=== PATIENT | female | born 1945 | race African-American/Black ===

== ENCOUNTER 2017-04-06 09:27 | Emergency (ER) | payer MEDICARE, OTHER ==
[~2017-04-06] VITALS: Ht 162.6 cm; Wt 105.0 kg
[~2017-04-06 09:27] MED LIST: AMLO5TAB2 PO; ASPI81CH CHEW; BACL10TA PO; D3400CAP PO; DICL1GEL3 TOPICAL; FLUO20CA12 PO; GABA300C5 PO; GLIP5TAB8 PO; HYDR-3516 PO; HYDR50TA3 PO; LATA0.002 EACH EYE; LOSA100T PO; METF1000 PO; METH5TAB4 PO; METO100T PO; MULT1TAB84 PO
[2017-04-06 09:34] VITALS: BP 146/75; PULSE 88; RESP 15; TEMP 97.4; O2SAT 97
--- NOTE | 2017-04-06 11:12 | PD ---
HPI Chief Complaint: GI Complaint Time Seen by Provider: 10:49 Travel History International Travel<30 days: No Contact w/Intl Traveler<30days: No Traveled to known affect area: No History of Present Illness HPI This patient complains of generalized weakness and malaise. Duration is one month. She has occasional vomiting and diarrhea. She is not having abdominal pain. She denies fever. She saw her primary physician a few weeks ago. It came up whether depression was related to these symptoms. She started on antidepressant recently but doesn't really feel any different. She denies suicidal thoughts. She denies productive cough or shortness of breath or chest pain. Symptoms severity is moderate. No alleviating factors. No Exacerbating factors. She does have history of hyperthyroidism. PFSH Past Medical History Anemia: Yes Cancer: No Cardiovascular Problems: Yes (PVD) High Cholesterol: Yes Diabetes: Yes Diminished Hearing: No Endocrine: Yes GERD: Yes Glaucoma: Yes Genitourinary: No Hepatitis: No Hiatal Hernia: No Hypertension: Yes Immune Disorder: Yes (RA) Musculoskeletal: Yes (ARTHRITIS, DDD, RA) Neurologic: Yes (HEADACHES) Psychiatric: No Reproductive: No Respiratory: Yes (SLEEP APNEA/ NO CPAP) Sleep Apnea: Yes Thyroid Disease: Yes (BORDERLINE HYPER) ?: Not Past Surgical History AICD: No Body Medical Devices: LUMBAR HARDWARE, CARDIAC STENTS Cardiac Surgery: Yes (cardiac stents x4) Gynecologic Surgery: Yes (HYSTERECTOMY) Hysterectomy: Yes (PARTIAL MANY YEARS AGO, FULL 2006) Joint Replacement: Yes (RIGHT KNEE) Pacemaker: No Other Surgery: No (WILLI, LEFT OVARIAN CYTECTOMY HEART CATH ) Social History Alcohol Use: No Tobacco Use: No Substance Use: Yes (MARIJUANA) Allergies-Medications (Allergen,Severity, Reaction): Coded Allergies: aspirin (Unverified Allergy, Severe, vaginitis or anything containing aspirin, 03/30/17) 11/24/14 DENIES ALLERGY ibuprofen (Unverified Allergy, Severe, VAGINITIS, 03/30/17) doxycycline (Unverified Allergy, Intermediate, VAGINITIS, 03/30/17) minocycline (Unverified Allergy, Intermediate, VAGINITIS, 03/30/17) tigecycline (Unverified Allergy, Intermediate, VAGINITIS, 03/30/17) tramadol (Unverified Allergy, Mild, Itching, 10/9/17) Reported Meds & Prescriptions Reported Meds & Active Scripts Active Fluoxetine (Fluoxetine HCl) 20 Mg Capsule 20 Mg PO DAILY Gabapentin 300 Mg Cap 300 Mg PO BID Baclofen 10 Mg Tab 10 Mg PO BID PRN Hydrocodone-Acetaminophen 5-325 mg Tab 1 Tab PO Q4H PRN Losartan (Losartan Potassium) 100 Mg Tab 100 Mg PO DAILY Metformin (Metformin HCl) 1,000 Mg Tab 1,000 Mg PO BIDPC With meals Diclofenac Topical 3 % Gel 1 Applic TOPICAL BID Metoprolol Tartrate 100 Mg Tab 100 Mg PO BID Amlodipine (Amlodipine Besylate) 5 Mg Tab 5 Mg PO DAILY Hydrochlorothiazide 50 Mg Tab 50 Mg PO DAILY Methimazole 5 Mg Tab 2.5 Mg PO DAILY Glipizide 5 Mg Tab 5 Mg PO DAILY Take 30 minutes before a meal Reported Multivitamin Adults (Multiple Vitamins W/ Minerals) 1 Tab 1 Tab PO DAILY D3 (Cholecalciferol) 400 Unit Cap 1 Cap PO DAILY Aspirin 81 Mg Chew 81 Mg CHEW DAILY Latanoprost Opth Drops (Latanoprost) 0.005% Drops 1 Drop EACH EYE HS Refrigerate until opened. Review of Systems General / Constitutional: No: Fever Eyes: No: Visual changes HENT: No: Headaches Cardiovascular: No: Chest Pain or Discomfort Respiratory: No: Shortness of Breath Gastrointestinal: Positive: Nausea, Vomiting, Diarrhea, No: Abdominal Pain Genitourinary: No: Dysuria Musculoskeletal: Positive: Weakness, No: Pain Skin: No Rash Neurologic: Positive: Weakness Psychiatric: Positive: Depression Endocrine: No: Polydipsia Hematologic/Lymphatic: No: Easy Bruising Physical Exam Narrative GENERAL: Well-nourished, well-developed patient in no apparent distress. SKIN: Focused skin assessment reveals no rash and nodules. Skin is Warm and dry. HEAD: Atraumatic. Normocephalic. EYES: Pupils equal and round. No scleral icterus. No injection or drainage. ENT: No nasal bleeding or discharge. Mucous membranes pink and moist. NECK: Trachea midline. No JVD. CARDIOVASCULAR: Regular rate and rhythm. No murmur appreciated. RESPIRATORY: No accessory muscle use. Clear to auscultation. Breath sounds equal bilaterally. GASTROINTESTINAL: Abdomen soft, non-tender, nondistended. Hepatic and splenic margins not palpable. MUSCULOSKELETAL: No obvious deformities. No clubbing. No cyanosis. No edema. NEUROLOGICAL: Awake and alert. No obvious cranial nerve deficits. Motor grossly within normal limits. Normal speech. PSYCHIATRIC: Depressed mood and flat affect; insight and judgment reasonable. Data Data Last Documented VS Vital Signs Date Time Temp Pulse Resp B/P (MAP) Pulse Ox O2 Delivery O2 Flow Rate FiO2 04/06/17 09:34 97.4 88 15 146/75 (98) 97 Orders Orders Complete Blood Count With Diff (04/06/17 11:07) Comprehensive Metabolic Panel (04/06/17 11:07) Urinalysis - C+S If Indicated (04/06/17 11:07) Thyroid Stimulating Hormone (04/06/17 11:07) Iv Access Insert/Monitor (04/06/17 11:07) Ed Discharge Order (04/06/17 13:06) Labs Laboratory Tests Test 04/06/17 11:15 White Blood Count 8.2 TH/MM3 Red Blood Count 4.72 MIL/MM3 Hemoglobin 13.7 GM/DL Hematocrit 40.7 % Mean Corpuscular Volume 86.3 FL Mean Corpuscular Hemoglobin 29.1 PG Mean Corpuscular Hemoglobin Concent 33.7 % Red Cell Distribution Width 13.5 % Platelet Count 211 TH/MM3 Mean Platelet Volume 8.3 FL Neutrophils (%) (Auto) 65.9 % Lymphocytes (%) (Auto) 26.2 % Monocytes (%) (Auto) 4.9 % Eosinophils (%) (Auto) 2.5 % Basophils (%) (Auto) 0.5 % Neutrophils # (Auto) 5.4 TH/MM3 Lymphocytes # (Auto) 2.2 TH/MM3 Monocytes # (Auto) 0.4 TH/MM3 Eosinophils # (Auto) 0.2 TH/MM3 Basophils # (Auto) 0.0 TH/MM3 CBC Comment DIFF FINAL Differential Comment Blood Urea Nitrogen 8 MG/DL Creatinine 0.99 MG/DL Random Glucose 136 MG/DL Total Protein 7.2 GM/DL Albumin 3.3 GM/DL Calcium Level 9.2 MG/DL Alkaline Phosphatase 87 U/L Aspartate Amino Transf (AST/SGOT) 14 U/L Alanine Aminotransferase (ALT/SGPT) 30 U/L Total Bilirubin 0.4 MG/DL Sodium Level 137 MEQ/L Potassium Level 3.2 MEQ/L Chloride Level 101 MEQ/L Carbon Dioxide Level 27.0 MEQ/L Anion Gap 9 MEQ/L Estimat Glomerular Filtration Rate 67 ML/MIN Thyroid Stimulating Hormone 3rd Gen 1.070 uIU/ML MDM Medical Decision Making Medical Screen Exam Complete: Yes Emergency Medical Condition: Yes Medical Record Reviewed: Yes Differential Diagnosis Gastritis, colitis, dehydration, UTI, thyroid disease, depression Narrative Course I have reviewed the patient's electronic medical record. IV placed CBC is normal Metabolic profile shows minor hypokalemia LFTs are normal TSH is normal Patient is medically stable. Her vital signs and exam are normal. She does seem depressed and is recently started an antidepressant which does take several weeks to get working properly. Recommend primary care follow-up Diagnosis Primary Impression: Generalized weakness Additional Impression: Depression Qualified Codes: F32.1 - Major depressive disorder, single episode, moderate Departure Forms: Tests/Procedures Additional Instructions: The patient was advised to follow up with their physician and return if they worsen. Med/Other Pt SpecificInfo: Other Disposition: 01 DISCHARGE HOME Condition: Stable Arsen Denis MD Apr 06, 2017 11:12
[2017-04-06 11:37] LABS: AUTOMATED NEUTROPHIL # 5.4 TH/MM3 (1.8-7.7); BASOPHIL % 0.5 % (0.0-2.0); EOSINOPHIL # 0.2 TH/MM3 (0-0.4); EOSINOPHIL % 2.5 % (0.0-4.0); HEMATOCRIT 40.7 % (35.0-46.0); HEMO FLAGS DIFF FINAL; LYMPH % 26.2 % (9.0-44.0); LYMPHOCYTE # 2.2 TH/MM3 (1.0-4.8); MEAN CELL VOLUME 86.3 FL (80.0-100.0); MEAN CORPUSCULAR HEMOGLOBIN 29.1 PG (27.0-34.0); MEAN CORPUSCULAR HGB CONC 33.7 % (32.0-36.0); MONO % 4.9 % (0.0-8.0); NEUT % 65.9 % (16.0-70.0); PLATELET COUNT 211 TH/MM3 (150-450); RED BLOOD COUNT 4.72 MIL/MM3 (4.00-5.30); RED CELL DISTRIBUTION WIDTH 13.5 % (11.6-17.2); WHITE BLOOD COUNT 8.2 TH/MM3 (4.0-11.0)
[2017-04-06 11:56] LABS: ANION GAP 9 MEQ/L (5-15); AST (GOT) 14 U/L (15-37); BLOOD UREA NITROGEN 8 MG/DL (7-18); CHLORIDE 101 MEQ/L (98-107); GLOMERULAR FILTRATION RATE 67 ML/MIN (>89); POTASSIUM 3.2 MEQ/L (3.5-5.1); SODIUM (NA) 137 MEQ/L (136-145)
[2017-04-06 11:57] LABS: ALT (GPT) 30 U/L (10-53)
[2017-04-06 11:59] LABS: ALKALINE PHOSPHATASE 87 U/L (45-117); TOTAL BILIRUBIN ADULT 0.4 MG/DL (0.2-1.0)
[2017-04-06 12:30] VITALS: BP 165/72; PULSE 71; RESP 19; O2SAT 100
[2017-04-13] MEDS ORDERED: CYAN1000P IM (10:46)
[2017-04-13] MEDS ORDERED: HYDR-3516 PO (10:48)
[2017-04-13] MEDS ORDERED: TRAZ50TA12 PO (10:51)
== END 2017-04-06 13:45 | disposition home or self-care (01) ==
LOC: NEPD 09:27
DX: R53.1 Weakness (principal); F32.1 Major depressive disorder, single episode, moderate; I73.9 Peripheral vascular disease, unspecified; E11.9 Type 2 diabetes mellitus without complications; E78.00 Pure hypercholesterolemia, unspecified; K21.9 Gastro-esophageal reflux disease without esophagitis; I10 Essential (primary) hypertension
CPT/HCPCS: 80053; 84443; 85025; 99283